=== PATIENT | male | born 1970 | race American Indian/Alaskan Native ===

== ENCOUNTER 2019-06-12 08:38 | Day surgery (SDC) | payer OTHER ==
[~2019-06-12 08:38] MED LIST: SODIUM CHLORIDE 0.9% 1000 ML 1,000 ML IV SCH
[2019-06-12] MEDS ORDERED: LIDOCAINE MPF (2%) 20 MG/1 ML VIAL 5 ML ONE (09:00)
--- NOTE | 2019-06-12 10:01 | Anesthesia Consultation ---
Anesthesia Consult and Med Hx Date of service: 06/12/19 - Airway Anesthetic Teeth Evaluation: Good ROM Head & Neck: Adequate Mental/Hyoid Distance: Adequate Mallampati Class: Class II Intubation Access Assessment: Probably Good - Pulmonary Exam CTA: Yes - Cardiac Exam Cardiac Exam: RRR - Pre-Operative Health Status ASA Pre-Surgery Classification: ASA2 Proposed Anesthetic Plan: MAC - Pulmonary Hx Sleep Apnea: Yes (uses CPAP machine every now and then) - Cardiovascular System Hx Hypertension: No - Central Nervous System Hx Neuromuscular Disorder: No Hx Psychiatric Problems: No - Gastrointestinal Hx Gastroesophageal Reflux Disease: Yes - Endocrine Hx Renal Disease: No Hx Insulin Dependent Diabetes: No Hx Non-Insulin Dependent Diabetes: No - Other Systems Hx Alcohol Use: No Hx Substance Use: No Hx Obesity: Yes
--- NOTE | 2019-06-12 10:03 | Anesthesia Day of Surgery ---
Anesthesia Day of Surgery - Day of Surgery Patient Examined: Yes Patient H&P Reviewed: Yes Patient is NPO: Yes
[2019-06-12] MEDS ORDERED: PROPOFOL 200 MG/20 ML VIAL IV ONE ×2 (10:06→10:07)
[2019-06-12] MEDS ORDERED: fentaNYL 100 MCG/2 ML INJ ONE (10:06)
--- NOTE | 2019-06-12 10:48 | Procedure Note ---
Date of procedure: 06/12/19 Pre-op diagnosis: GERD/ Colon Polyp Screening Post-op diagnosis: other (Mild to Moderate Erosive Esophagitis/Gastric Erosion and Gastritis/Duodenal Erosion/ Colon Polyps (Recto-sigmoid and Ascvending colon)/Minor Internal Hemorrhoid) Procedure: EGD with biopsy/ Colonoscopy with Cold Biopsy and Cold Snare Polypectomy Anesthesia: [facility] [place] Surgeon: DIA ROMERO Estimated blood loss: minimal Pathology: list Specimen disposition: to lab Condition: stable Disposition: same day (Treat with PPI and OTC hemorrhoidal medication. Avoid aspirin and NSAID for 4 days; resume home medication and follow up in 1 to 2 weeks ([phone]).)
--- NOTE | 2019-06-12 10:59 | Operative Report ---
PROCEDURE: Esophagogastroduodenoscopy with biopsy. INDICATIONS: A 48-year-old -[place] gentleman with an underlying history of hypertension, sleep apnea, who has been having GERD symptoms. EGD was done to assess the problem. DESCRIPTION OF PROCEDURE: Procedure was done after getting informed consent with MAC anesthesia. Instrument was passed through the hypopharynx into the esophagus, which showed [id number] erosive esophagitis. Biopsy was done from the distal esophagus. Stomach showed gastric erosion, gastritis. The pylorus was patent. The duodenum in the bulb showed evidence of duodenal erosion. Biopsy was also done from the gastric antrum, gastric body, angular incisura to rule out for H. pylori and atrophic gastritis. There was minimal bleeding associated with the procedure. No complications associated with the procedure. ASSESSMENT: Gastroesophageal reflux disease symptoms, mild to moderate erosive esophagitis, gastric erosion, gastritis, duodenal erosion. PLAN: To treat the patient with PPI, have the patient avoid aspirin and aspirin-related products for the next few days. A colonoscopy will be done as part of colon polyp screening. The patient will be asked to avoid aspirin and aspirin-related products for the next 4 days. Follow up in the office in 1-2 weeks' time. Otherwise, resume home medication. The procedure was done in the GI lab with assistance of the GI lab team, which included CLIFTON Cannon with assistance of the conveyor technician and with assistance of anesthesia. JOB# [id number] CAIO/LILI
--- NOTE | 2019-06-12 11:06 | Operative Report ---
PROCEDURE: Colonoscopy with cold biopsy and snare polypectomy. INDICATIONS: A 48-year-old -[place] gentleman with an underlying history of hypertension, history of sleep apnea. EGD was done prior to the colonoscopy, which showed presence of [id number] erosive esophagitis, gastric erosion as well as duodenal erosion DESCRIPTION OF PROCEDURE: Colonoscopy was done after getting informed consent with MAC anesthesia. Initial rectal exam was unremarkable. Instrument was passed through the rectum onto the cecum, which was identified with ileocecal valve and appendiceal orifice. Visualization was fair. The cecum showed normal mucosa. There was a small polyp noted in the ascending colon, probably about 6 mm in diameter, which was removed by cold biopsy. The remaining part of the ascending, transverse, descending colon, and sigmoid colon showed normal mucosa. In the proximal rectum, close to the rectosigmoid area, there was a 10 mm sessile polyp noted that was removed by cold snare polypectomy and retrieved and the rectum showed minor internal hemorrhoid on the retroverted view. The patient gives prior history of hematochezia, but no hematochezia for the last 4 weeks, possibly secondary to the minor internal hemorrhoids for which he is to be treated with [id number] hemorrhoidal medication. There was minimal bleeding associated with the procedure. No complications associated with the procedure. ASSESSMENT: Colon polyp screening. Two Colon polyps noted, one in the rectum removed by cold snare polypectomy. A smaller one in the descending colon, removed by cold biopsy, minor internal hemorrhoid. No evidence of any hematochezia at present. PLAN: Plan is to have the patient avoid aspirin and aspirin-related products for the next few days. Treat the patient with [id number] hemorrhoidal medication. Resume home medication, but avoid aspirin and aspirin-related products for the next 4-5 days and also treat the patient with PPI because of the EGD findings of erosive esophagitis, gastric erosion, gastritis, and duodenal erosion. Procedure was done in the GI lab with assistance of the GI lab team, which included alisha Gamez and with assistance of anesthesia. JOB# [id number] CAIO/LILI
[2019-06-12 11:23] VITALS: BP 122/81
--- NOTE | 2019-06-12 11:35 | Post Anesthesia Evaluation ---
- Post Anesthesia Evaluation Patient Participated: Yes Airway Patent: Yes Stable Respiratory Function: Yes Nausea/Vomiting: No Temp > 96.8F: Yes Pain Manageable: Yes Adequeate Hydration: Yes Anesthesia Complications: No Block Receding Appropriately: Not Applicable Patient on Ventilator: No
== END 2019-06-12 08:39 | disposition home or self-care (01) ==
LOC: GIO 08:38
DX: Z12.11 Encounter for screening for malignant neoplasm of colon (principal); K29.50 Unspecified chronic gastritis without bleeding; D12.2 Benign neoplasm of ascending colon; K62.1 Rectal polyp; K64.8 Other hemorrhoids; K21.0 Gastro-esophageal reflux disease with esophagitis; I10 Essential (primary) hypertension; I51.89 Other ill-defined heart diseases; G47.30 Sleep apnea, unspecified; E66.9 Obesity, unspecified; Z68.32 Body mass index [BMI] 32.0-32.9, adult; Z79.899 Other long term (current) drug therapy
CPT/HCPCS: 43239; 45380; 45385; 88305; 88341; 88342; J2704; J3010; J7030